=== PATIENT | male | born 1930 | race Caucasian/White ===

== ENCOUNTER 2019-08-19 09:30 | Outpatient (CLI) | payer MEDICARE, BC ==
[2019-08-19] VITALS (10 sets, daily range): BP systolic 133–197; BP diastolic 60–92
[~2019-08-19] VITALS: Ht 172.7 cm; Wt 71.2 kg
[~2019-08-19 09:30] MED LIST: ATEN25TA PO; CIPR500T94 PO; CLOP75TA57; CLOP75TA57 PO; CYAN-25 PO; FERR325T14 PO; FINA5TAB PO; FOLI1TAB16 PO; GUAI600T47 PO; LOSA-73 PO; LOSA25TA54; LOSA25TA54 PO; PANT40TA77 PO; SIMV10TA PO; SUCR1TAB35 PO; TAMS0.4C97 PO
[2019-08-19] MEDS ORDERED: CLOP75TA PO (09:44)
[2019-08-19 09:59] LABS: HEMATOCRIT 48.7 % (39.0-53.0); HEMOGLOBIN 16.8 g/dL (13.0-17.5); RED BLOOD COUNT 4.89 x10^6/uL (4.30-5.70)
[2019-08-19 10:09] LABS: PROTHROMBIN TIME PATIENT 13.2 SEC (11.7-14.0)
[2019-08-19 10:15] LABS: CALCIUM 8.7 mg/dL (8.5-10.1); CREATININE 1.1 mg/dL (0.7-1.3); GFR 63.3; POTASSIUM 4.1 mmol/L (3.5-5.1)
[2019-08-19] MEDS ORDERED: LIDOCAINE 1% Multi-Dose 20 ML VIAL. ONE (10:45)
[2019-08-19] MEDS ORDERED: IODIXANOL 320 MG/ML 100 ML VIAL. ONE (10:45)
[2019-08-19] MEDS ORDERED: MIDAZOLAM HCL/PF 2 MG/2 ML VIAL. ONE (11:22)
[2019-08-19] MEDS ORDERED: fentaNYL PF VIAL 100 MCG/2 ML VIAL ONE (11:22)
[2019-08-19] MEDS ORDERED: LIDOCAINE 1% Multi-Dose 20 ML VIAL. INJ ONE (12:00)
[2019-08-19] MEDS ORDERED: fentaNYL PF VIAL 100 MCG/2 ML VIAL IV ONE (12:00)
[2019-08-19] MEDS ORDERED: IODIXANOL 320 MG/ML 100 ML VIAL. IART ONE (12:00)
[2019-08-19] MEDS ORDERED: MIDAZOLAM HCL/PF 2 MG/2 ML VIAL. IV ONE (12:00)
[2019-08-19] MEDS ORDERED: IV 1/2 NORMAL SALINE 1,000 ML IV SCH (12:12)
--- NOTE | 2019-08-19 12:12 | PDOC ---
MODERATE SEDATION ASSESSMENT RISKS/ALTERNATIVES Risks/Alternatives Risks and alternatives of this type of sedation and procedure discussed with: RISK/ALTERNATIVES: Patient H & P ON CHART H & P H & P on chart and reviewed for co-morbid conditions and appropriate labs. H&P ON CHART: Yes STATUS PREG STATUS ASSESSED: N/A MEDS/ALLERGIES REVIEWED Meds/Allergies Reviewed Medications and Allergies including time and route of recently administered narcotics and sedatives. MEDS/ALLERGIES REVIEWED: Yes ASA RATING ASA RATING: III AIRWAY ASSESSMENT Airway Assessment Airway patency, oral function limitations, presence of caps, crowns, dentures, partials, and ability to extend neck assessed. AIRWAY ASSESSMENT: Yes MALLAMPATI SCORE MALLAMPATI SCORE: II PRE-SEDATION ASSESSMENT PRE-SEDATION ASSESSMENT: Yes MILLER RODARTE MD Aug 19, 2019 12:12
[2019-08-19] MEDS ORDERED: ACETAMINOPHEN 325 MG TABLET. PO PRN (12:15)
--- NOTE | 2019-08-19 13:03 | CARD ---
MR#: [id number] Date of Study: 08/19/2019 Ordering Physician: MILLER RODARTE Referring Physician: MILLER RODARTE Tech: Merline Arce RT (R) APPROVED REPORT Patient StatusCLI Motor Vehicle Compliance Analyst: Merline Arce RT (R) Procedure(s) performed: Aortogram with bilateral lower extremity runoff FL TIME: 7.2 MINS DOSE: 44 GY/CM2 CONTRAST: 93 ML MODERATE SEDATION: 34 MINS INDICATION FOR PROCEDURE The indication(s) include : Peripheral artery disease with claudication. PROCEDURE NARRATIVE After explaining the risks, benefits and alternative options, informed consent was obtained from princess ent. Patient was brought to the cardiac Jigger Operator and his right groin was prepped and draped in the us ual fashion. 20 mL of 2% lidocaine was infiltrated into the skin and subcutaneous tissues for local a nesthesia. Arterial access was obtained in the right common femoral artery and a 5 Georgian sheath was inserted. 5 Georgian pigtail catheter was used to perform aortogram with bilateral lower extremity runo ff. The following findings were noted. FINDINGS 1. No significant stenosis involving distal descending aorta and bilateral renal arteries 2. No significant stenosis involving bilateral common and external iliac arteries 3. No significant stenosis involving bilateral common femoral and superficial femoral arteries 4. No significant stenosis involving bilateral popliteal arteries 5. There is one vessel runoff below the knee bilaterally. The left anterior tibial artery showed 100 % chronic total occlusion in the proximal segment. The left peroneal artery showed 60% stenosis in th e proximal segment. The left posterior tibial artery showed 100% occlusion in the proximal to mid seg ment. The right posterior tibial artery showed 80% stenosis in the proximal segment. The right anteri or artery showed 100% chronic total occlusion in the proximal segment and peroneal artery showed 100% chronic total occlusion in the proximal segment. Conclusion Below the knee peripheral artery stenoses as described above without any major vascular stenosis abov e-the-knee. Since patient does not have any resting pain or nonhealing wounds, we will manage this conservatively at this time. Consider adding Xarelto 2.5 mg BID to optimize therapy. Signed by : Miller Rodarte, Electronically Approved : 08/19/2019 13:03:38
--- NOTE | 2019-08-19 15:13 | NUR ---
Discharge Note: MONIKA TERRELL Discharge instructions and discharge home medications reviewed with Patient and a copy given. All questions have been answered and understanding verbalized. The following instructions and handouts were given: Groin site care, moderate sedation Discontinued lines and drains: right forearm IV discontinued. Patient discharged home with .
== END 2019-08-19 15:00 ==
LOC: CCL 09:30
PROVIDERS: ATTEND Internal Medicine Cardiovascular Disease
DX: I70.213 Atherosclerosis of native arteries of extremities with intermittent claudication, bilateral legs (principal); I10 Essential (primary) hypertension; I25.10 Atherosclerotic heart disease of native coronary artery without angina pectoris; E78.5 Hyperlipidemia, unspecified; N40.0 Benign prostatic hyperplasia without lower urinary tract symptoms; Z79.899 Other long term (current) drug therapy; Z95.5 Presence of coronary angioplasty implant and graft; Z98.890 Other specified postprocedural states; Z88.8 Allergy status to other drugs, medicaments and biological substances
CPT/HCPCS: 36200; 36415; 75630; 80048; 85027; 85610; 99152; 99153; C1713; C1769; C1892; J1644; J2250; J3010; Q9967; 36246; G0269

== ENCOUNTER → 2020-10-01 | Outpatient (CLI) | payer MEDICARE, BC ==
[2019-08-19 14:19] VITALS: BP 150/66
[~2020-10-01] MED LIST changes: +CLOP75TA PO; +REGADENOSON 0.4 MG/5 ML DISP.SYRIN. IV ONE
--- NOTE | 2020-10-01 15:34 | RAD ---
MR#: [id number] Date of Study: 10/01/2020 Ordering Physician: MILLER RODARTE, Referring Physician: BORIS KENDALL Tech: ADONIS Gramajo ARRT (R) (N) APPROVED REPORT Test Type: Pharmacological Stress Nurse/Tech: Thalia Claudio RN Test Indications: CAD Cardiac History: CAD, HTN, See EMR Medications: See EMR Medical History: See EMR Resting ECG: SR Resting Heart Rate: 53 bpm Resting Blood Pressure: 169/77mmHg Pretest Chest Pain: No chest pain Nurse/Tech Notes Lungs CTA, Heart tones regular. Consent: The procedure was explained to the patient in lay terms. Informed consent was witnessed. Emigdio eout was entered into [employer]. History and Stress Test performed by RT Joan Campbell) (N) Pharm. Details Pharmacologic stress testing was performed using 0.4mg per 5ml of regadenoson given intravenously ove r 7-10 seconds. Stress Symptoms Dyspnea POST EXERCISE Reason for Termination: Infusion complete Max HR: 67 bpm Max Blood Pressure: 169/77mmHg Blood Pressure response to exercise: Normal blood pressure response during stress. Heart Rate response to exercise: WNL Chest Pain: No. Arrhythmia: No. ST Change: No. INTERPRETATION Stress EKG Conclusion: The resting EKG shows a sinus rhythm with nonspecific ST-T wave changes. The stress EKG shows no significant changes from baseline. No EKG evidence of stress-induced ischemia. Imaging Protocol IMAGE PROTOCOL: Rest Tc-99m/stress Tc-99m 1 day Rest: Stress: Viability: Radiopharm.Tc99m DewdugfgiMo34w Sestamibi Dose10.1mCi 30.6mCi Img Date 10/01/2020 10/01/2020 Inj-Img Qiul02jwq. 60min. Rest Admin Site:IV - Left AntecubitalAdministrator:ADONIS Gramajo ARRT (R)(N) Stress Admin Site: IV - Left AntecubitalAdministrator: RT Joan Campbell)(N) STRESS DATA End Diast. Vol.74.0mlAv. Heart Rate61.0bpm End Syst. Vol.8.0mlCO Index BSA4.0L/min Myocardial Mjnv086.0gEject. Qnkawzxj99.0% Stress Rates Pk. Fill Rate2.11EDV/secLVtime Pk. Fill 166.84msec Pk. Empty Rate3.79ESV/secLVtime Pk. Sguli935.99msec 1/3 Pk. Fill1.33EDV/sec Stress Scores Regional WT1.00Summed WT4.00 Regional WM0.00Summed WM0.00 LV Perfusion The stress scans show no significant defects. The rest scans showed no significant defects. Nuclear imaging shows no reversible ischemia or infarct. Wall Motion Left ventricular systolic function is normal with no regional wall motion abnormalities and an ejecti on fraction of greater than 70%. LV Perf. Quant 17 Seg. SSS1.00 17 Seg. SRS8.00 17 Seg. SDS0.00 Stress Defect Extent (% LAD)0.00Rest Defect Extent (% LAD)16.90Rev. Defect Extent (% LAD)0.00 Stress Defect Extent (% LCX) 13.80Rest Defect Extent (% LCX)27.50Rev. Defect Extent (% LCX)0.00 Stress Defect Extent (% RCA)0.00Rest Defect Extent (% RCA)0.00Rev. Defect Extent (% RCA)0.00 Stress Defect Extent (% SARAH)2.60Rest Defect Extent (% SARAH)12.80Rev. Defect Extent (% SARAH)0.00 Conclusion 1. No EKG evidence of stress-induced ischemia. 2. Nuclear imaging shows no reversible ischemia or infarct. 3. Normal left ventricular systolic function with an ejection fraction of greater than 70%. 4. Moderately low to low risk Lexiscan nuclear stress test. Signed by : Trey Robles MD Electronically Approved : 10/01/2020 15:34:17
== END ==
LOC: NM 10:02
PROVIDERS: ATTEND Internal Medicine Cardiovascular Disease
DX: I25.10 Atherosclerotic heart disease of native coronary artery without angina pectoris (principal); I10 Essential (primary) hypertension
CPT/HCPCS: 78452; 93017; A9500; J2785